=== PATIENT | female | born 1995 | race Caucasian/White ===

== ENCOUNTER → 2020-09-04 | Outpatient (CLI) | payer OTHER | END | disposition home or self-care (01) | LOC: LAB 17:10 | PROVIDERS: ATTEND Emergency Medicine Emergency Medical Services | DX: Z11.59 Encounter for screening for other viral diseases (principal) | CPT/HCPCS: 36415; 86706 ==

== ENCOUNTER → 2021-02-17 | Outpatient (CLI) | payer OTHER | END | disposition home or self-care (01) | LOC: LAB 15:08 | PROVIDERS: ATTEND Emergency Medicine Emergency Medical Services | DX: Z11.1 Encounter for screening for respiratory tuberculosis (principal) | CPT/HCPCS: 36415; 86480 ==